=== PATIENT | male | born 1975 | race African-American/Black ===

== ENCOUNTER 2020-07-15 10:16 | Emergency (ER) | payer SELFPAY ==
[2020-07-15 10:27] VITALS: BMI 29.2
[2020-07-15] MEDS ORDERED: ACETAMINOPHEN 325 MG TABLET (FP) PO ONE (10:33)
[2020-07-15] MEDS ORDERED: ACETAMINOPHEN 325 MG TABLET (FP) ONE (10:35)
[2020-07-15] MEDS ORDERED: LACTATED RINGERS SOLUTION 1000 ML INFUS.BAG IV ONE (10:58)
--- NOTE | 2020-07-15 10:58 | PDOC ---
History of Present Illness - General Chief Complaint: Urinary Problem Stated Complaint: URINARY PROBLEMS Time Seen by Provider: 07/15/20 10:38 History Source: Patient Exam Limitations: No Limitations - History of Present Illness Initial Comments: 07/15/20 10:55 45y M with no significant PMH presenting to the ED with complaints of UTI. Pt states symptoms started 2-3 days ago with dysuria, fever and flank pain. Pt came in today because he saw particles in the urine and says he had discharge. Pt describes discharge as particulate and a derik color. Endorses bilateral flank pain. Denies chest pain, sob, abdominal pain, n/v/d, cough, congestion, history of STDs, testicular pain, testicular swelling. He says he had a uti a few years ago but did not need to be admitted. Does not have a urologist. PMD: PMH: none PSH: none Meds: None Allergies: nkda Social: denies Past History - Medical History Allergies/Adverse Reactions: Allergies Allergy/AdvReac Type Severity Reaction Status Date / Time No Known Allergies Allergy Verified 07/15/20 10:23 Home Medications: Ambulatory Orders Sulfamethoxazole/Trimethoprim [Bactrim Ds -] 1 tab PO BID #14 tablet 07/15/20 COPD: No - Immunization History Immunization Up to Date: Yes - Psycho-Social/Smoking History Smoking History: Never smoked - Substance Abuse Hx (Audit-C & DAST Scrn) How often the patient has a drink containing alcohol: Never Score: In Men: 4 or > Positive; In Women: 3 or > Positive: 0 Screen Result (Pos requires Nsg. Audit-10AR): Negative In the last yr the pt used illegal drug/Rx for NonMed reason: No Score: Yes response is considered Positive: 0 Screen Result (Positive result requires Nsg. DAST-10): Negative Review of Systems - Review of Systems Constitutional: Yes: Chills, Fever HEENTM: No: Symptoms Reported Respiratory: No: Symptoms reported Cardiac (ROS): No: Symptoms Reported ABD/GI: No: Symptoms Reported : Yes: See HPI Musculoskeletal: No: Symptoms Reported Integumentary: No: Symptoms Reported Neurological: No: Symptoms reported *Physical Exam - Vital Signs Last Vital Signs Temp Pulse Resp BP Pulse Ox 102.6 F H 85 18 110/72 99 07/15/20 10:23 07/15/20 10:23 07/15/20 10:23 07/15/20 10:23 07/15/20 10:23 - Physical Exam General Appearance: Yes: Nourished, Appropriately Dressed. No: Apparent Distress HEENT: positive: EOMI, JESSE, Normal ENT Inspection Neck: positive: Trachea midline, Supple. negative: Lymphadenopathy (R), Lymphadenopathy (L) Respiratory/Chest: positive: Lungs Clear, Normal Breath Sounds. negative: Crackles, Rales, Rhonchi, Stridor, Wheezing Cardiovascular: positive: Regular Rhythm, Regular Rate, S1, S2. negative: Edema, JVD, Murmur Vascular Pulses: Dorsalis-Pedis (R): 2+, Doralis-Pedis (L): 2+ Gastrointestinal/Abdominal: positive: Normal Bowel Sounds, Soft. negative: Tender, Tenderness Male Genitalia: positive: normal genitalia. negative: discharge, testicular tenderness, testicular mass Musculoskeletal: negative: CVA Tenderness Extremity: positive: Normal Capillary Refill. 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 NML intact, Fully Oriented, Alert, Normal Mood/Affect, Normal Response, Motor Strength 03/14 ED Treatment Course - LABORATORY CBC & Chemistry Diagram: 07/15/20 11:35 07/15/20 11:35 - Medications Given in the ED: ED Medications Discontinued Medications Generic Name Dose Route Start Last Admin Trade Name Freq PRN Reason Stop Dose Admin Acetaminophen 650 mg 07/15/20 10:33 07/15/20 10:33 Tylenol - PO 07/15/20 10:34 650 mg NOW ONE Administration Medical Decision Making - Medical Decision Making 07/15/20 18:54 45y M with no pmh presenting for dysuria, fever and lower back pain vitals: febrile otherwise wnl PE: no cva tenderness, no abdominal tenderness, normal genital exam. exam otherwise normal. ddx includes uti, urethritis, pyelonephritis. stone less likley given no flank tenderness, pt not complaining of flank pain. -sepsis w/u -fluids -Tylenol ua positive for infection, will give rocephin. bedside sono with normal kidneys, no hydro. thick bladder wall. will order CT to evaluate for other sources. CT shows thickened bladder wall, fatty liver otherwise wnl. pt no longer febrile. does not have f/u. discussed importance of making appt with urology and pmd. referrals provided. rx for bactrim sent. strict return precautions provided. discussed diagnosis and dc instructions with patient. will dc home. Discharge - Discharge Information Problems reviewed: Yes Clinical Impression/Diagnosis: Cystitis, Fatty liver UTI (urinary tract infection) Qualifiers: Urinary tract infection type: site unspecified Hematuria presence: with hematuria Qualified Code(s): N39.0 - Urinary tract infection, site not specified Condition: Fair Disposition: HOME - Additional Discharge Information Prescriptions: Sulfamethoxazole/Trimethoprim [Bactrim Ds -] 1 tab PO BID #14 tablet - Follow up/Referral Referrals: [facility] [place] [facility] [place] [Provider Group] Taiwo Lee MD [Staff Physician] - Jim Burr MD [Staff Physician] - Miguel Delgado MD [Staff Physician] - Ian Barron MD., MD [Staff Physician] - Berlin Freed MD [Staff Physician] - Blu Whitehead MD [Staff Physician] - Jackie Beck DO [Staff Physician] - Eugenio Gould DO [Staff Physician] - - Patient Discharge Instructions Patient Printed Discharge Instructions: DI for Urinary Tract Infection (UTI), DI for Nonalcoholic Fatty Liver Disease Additional Instructions: You were seen in the ER today for UTI. You were given an antibiotic here in the ER and a prescription was sent to the pharmacy. Take it as directed. You must follow up with a urologist as well as a primary care doctor. The phone numbers have been provided below. If you are unable to make an appointment or be seen in 2-3 days, please return to the ER especially if your symptoms do not resolve. Drink plenty of water. The CT scan shows thickened bladder wall which signifies infection and a fatty liver. Refrain from drinking alcohol and you should also follow up with a GI doctor in the future. Return to the ER if you continue to have fevers/chills, have abdominal pain, are not producing urine, you start vomiting or if any new or concerning symptom develops. Thank you - Post Discharge Activity Vital Signs - Vital Signs Temperature: 99 F Temperature source: Oral Pulse Rate: 71 Blood Pressure: 118/63
--- NOTE | 2020-07-15 11:32 | PDOC ---
Documentation entered by Sander Mckinley SCRIBE, acting as scribe for Alivia Alexandra MD. Alivia Alexnadra MD: This documentation has been prepared by the Elías saeed Xhesika, SCRIBE, under my direction and personally reviewed by me in its entirety. I confirm that the documentation accurately reflects all work, treatment, procedures, and medical decision making performed by me. Attending Attestation - Resident Resident Name: Pauline Aragon - ED Attending Attestation I have performed the following: I have examined & evaluated the patient, The case was reviewed & discussed with the resident, I agree w/resident's findings & plan, Exceptions are as noted - HPI HPI: 07/15/20 10:51 The patient is a 45 year old male with no significant PMH of who presents to the emergency department for 2-3 days of fever, bilateral flank pain and dysuria. Pt states this morning her endorsed derik color penile discharge, prompting his arrival to the ED. Pt denies history of STDs, testicular pain, testicular swelling. The patient denies chest pain, shortness of breath, headache and dizziness. Denies fever, chills, cough, nausea, vomiting, diarrhea and constipation. no cough no sob. no other symptoms. Allergies: NKDA 07/15/20 14:03 - Physicial Exam PE: 07/15/20 14:03 Awake alert no acute distress lungs are clear bilaterally heart is regular 30 murmurs rubs or gallops abdomen is soft there is mild suprapubic tenderness bilateral CVA tenderness no rebound no guarding skin is warm and dry extremities are warm perfused neurologically patient is awake alert and oriented x3 - Medical Decision Making 07/15/20 14:04 45-year-old male no past medical history here with fever and dysuria for 2 to 3days also complaining of penile discharge states similar to previous UTI denies any new sexual encounters Differential includes urethritis UTI pyelonephritis plan focused ED renal ultrasound basic labs UA urine culture Focused ED ultrasound bilateral kidneys performed right kidney measures 12.6 left kidney measures 12.7 cm there is no hydro-noted bilaterally patient does have an irregularly thickened bladder wall impression normal renal ultrasound, thickened bladder wall Discussed with patient regarding follow-up he does have a positive UA consistent with pyelonephritis patient does not have follow-up and does not have insurance will perform CT abdomen pelvis to evaluate bladder irregularity rule out any underlying infected stone will be given referral for the [facility] as well as urology told to return for any vomiting states the symptoms should be relieved by tomorrow evening if they are not he should return to the ED Discharge - Discharge Information Problems reviewed: Yes Clinical Impression/Diagnosis: UTI (urinary tract infection) Qualifiers: Urinary tract infection type: site unspecified Hematuria presence: with hematuria Qualified Code(s): N39.0 - Urinary tract infection, site not specified - Follow up/Referral Referrals: [facility] [place] [facility] [place] [Provider Group] Taiwo Lee MD [Staff Physician] - Jim Burr MD [Staff Physician] - Miguel Delgado MD [Staff Physician] - Ian Barron MD., [Staff Physician] - Berlin Freed MD [Staff Physician] - Blu Whitehead MD [Staff Physician] - - Patient Discharge Instructions Additional Instructions: You were seen in the ER today for UTI. You were given an antibiotic here in the ER and a prescription was sent to the pharmacy. Take it as directed. You must follow up with a urologist as well as a primary care doctor. The phone numbers have been provided below. If you are unable to make an appointment or be seen in 2-3 days, please return to the ER especially if your symptoms do not resolve. Drink plenty of water. Return to the ER if you continue to have fevers/chills, have abdominal pain, are not producing urine, you start vomiting or if any new or concerning symptom deve lops. Thank you - Post Discharge Activity
[2020-07-15 11:55] LABS: BASO % 0.2 % (0-2.0); EOS % 0.1 % (0-4.5); HEMATOCRIT 42.6 % (35.4-49); HEMOGLOBIN 14.5 GM/dL (11.7-16.9); LYMPH % 6.8 % (8-40); MCH 28.6 pg (25.7-33.7); MCHC 34.1 g/dl (32.0-35.9); MEAN CELL VOLUME 83.8 fl (80-96); MEAN PLT VOLUME 9.9 fl (7.5-11.1); MONO % 7.3 % (3.8-10.2); NEUT % 85.6 % (42.8-82.8); PLATELET COUNT 151 K/MM3 (134-434); RBC 5.09 M/mm3 (4.00-5.60); WHITE BLOOD COUNT 7.5 K/mm3 (4.0-10.0)
[2020-07-15 12:03] LABS: EPI CELLS 2 /uL (0-25.1); HYALINE CASTS 1 /uL (0-3.1); PH,URINE 5.5 (5.0-8.0); URINE APPEARANCE CLOUDY; URINE BACTERIA 6443 /uL (0-1359); URINE BILIRUBIN NEGATIVE (NEGATIVE); URINE COLOR YELLOW; URINE GLUCOSE (UA) NEGATIVE (NEGATIVE); URINE KETONE NEGATIVE (NEGATIVE); URINE LEUK ESTERASE 3+ (NEGATIVE); URINE NITRITE NEGATIVE (NEGATIVE); URINE PROTEIN TRACE (NEGATIVE); URINE RBC 382 /uL (0-23.9); URINE UROBILINOGEN 0.2 mg/dL (0.2-1.0); URINE WBC 1248 /uL (0-25.8)
[2020-07-15 12:04] LABS: ACTIVATED PTT 25.2 SECONDS (25.2-36.5)
[2020-07-15 12:14] LABS: INR 1.07 (0.83-1.09); PROTHROMBIN TIME (PATIENT) 12.6 SEC (9.7-13.0)
[2020-07-15] MEDS ORDERED: CEFTRIAXONE 1 GM in DEXTROSE 5%-WATER - 100 ML IVPB ONE (12:17)
[2020-07-15 12:37] LABS: ALBUMIN 3.8 g/dl (3.4-5.0); BILIRUBIN,TOTAL 0.7 mg/dL (0.2-1); CALCIUM 8.9 mg/dL (8.5-10.1); CREATININE 0.9 mg/dL (0.55-1.3); POTASSIUM 4.3 mmol/L (3.5-5.1); TOT PROT 7.5 g/dl (6.4-8.2)
[2020-07-15] MEDS ORDERED: CEFTRIAXONE 1 GM/50 ML BAG ONE (12:37)
[2020-07-15] MEDS ORDERED: DEXAMETHASONE SOD PHOSPHATE 10 MG/1 ML VIAL ONE (13:12)
[2020-07-15 15:24] VITALS: BP 118/63; PULSE 71; TEMP 99
== END 2020-07-15 15:51 | disposition home or self-care (01) ==
LOC: JER 10:16
DX: N39.0 Urinary tract infection, site not specified (principal); N30.00 Acute cystitis without hematuria; K76.0 Fatty (change of) liver, not elsewhere classified
CPT/HCPCS: 36415; 74176-TC; 76775; 80053; 81003; 83605; 85025; 85610; 85730; 87040; 87086; 87186; 87491; 87591; 99284-25

== ENCOUNTER 2022-08-23 08:08 | Emergency (ER) | payer OTHER ==
[2022-08-23 08:18] VITALS: BP 121/83; PULSE 64; RESP 17; TEMP 97.9; BMI 27.8
== END 2022-08-23 09:22 | disposition home or self-care (01) ==
LOC: JER 08:08
DX: M54.6 Pain in thoracic spine (principal); M79.601 Pain in right arm; V89.2XXA Person injured in unspecified motor-vehicle accident, traffic, initial encounter; Y92.9 Unspecified place or not applicable
CPT/HCPCS: 71046-TC-FY; 73090-TC-RT-FY; 99284-25